=== PATIENT | male | born 1975 | race Two or more races ===

== ENCOUNTER 2021-05-13 05:47 | Day surgery (SDC) | payer OTHER ==
[~2021-05-13 05:47] MED LIST: COZAAR50 MG PO; ELIQUIS5 MG PO; TOPROL XL25 M1 PO
[2021-05-13] MEDS ORDERED: ULTRACET PO (08:39)
[2021-05-13] MEDS ORDERED: RECTICARE30 GM TOP (08:40)
== END 2021-05-13 14:10 | disposition home or self-care (01) ==
LOC: CIR.AMB 05:47 → EDBD 10:15 → CIR.AMB 10:15
PROVIDERS: ATTEND Surgery
DX: K60.3 Anal fistula (principal); Z91.013 Allergy to seafood; I10 Essential (primary) hypertension; Z86.718 Personal history of other venous thrombosis and embolism; Z79.01 Long term (current) use of anticoagulants; Z20.822 Contact with and (suspected) exposure to COVID-19